=== PATIENT | female | born 1995 | race Caucasian/White ===

== ENCOUNTER 2021-05-04 04:24 | Inpatient (IN) | payer OTHER, SELFPAY ==
[2021-05-04 04:47] VITALS: BMI 49.8
[2021-05-04] MEDS ORDERED: Carboprost 250 MCG/ML AMP IM PRN (05:21)
[2021-05-04] MEDS ORDERED: Lidocaine 1% (PF) 30 ML VIAL SC PRN (05:21)
[2021-05-04] MEDS ORDERED: hydrALAZINE 20 MG/ML VIAL SLOW IVP PRN ×2 (05:21→18:46)
[2021-05-04] MEDS ORDERED: Diphenoxylate HCl/Atropine Tablet PO PRN (05:21)
[2021-05-04] MEDS ORDERED: Methylergonovine 0.2 MG/ML VIAL IM PRN (05:21)
[2021-05-04] MEDS ORDERED: Promethazine HCl 25 MG/ML VIAL IM PRN ×5 (05:21→18:46)
[2021-05-04] MEDS ORDERED: Butorphanol Tartrate 1 MG/ML VIAL SLOW IVP PRN (05:21)
[2021-05-04] MEDS ORDERED: Misoprostol 200 MCG TAB PR PRN (05:21)
[2021-05-04] MEDS ORDERED: Ondansetron PF 4 MG/2 ML Vial IVP PRN ×5 (05:21→18:46)
[2021-05-04] MEDS: Lactated Ringer's 1,000 ML IV SCH ×4 (05:40→20:49)
[2021-05-04] MEDS ORDERED: NS w/ Oxytocin 30 units 500 ML IV SCH ×3 (06:00→18:46)
[2021-05-04 06:10] LABS: Hemoglobin 13.9 g/dL (12.0-15.5); Mean Corpuscular HGB CONC 34.2 g/dL (32.0-36.0); Mean Corpuscular Hemoglobin 29.6 pg (27.0-33.0); Mean Corpuscular Volume 86.4 fl (81.6-98.3); Mean Platelet Volume 10.4 fl (7.4-10.4); Platelet Count 202 10x3/uL (150-450); RBC Distribution Width 14.2 % (11.5-14.5)
[2021-05-04] MEDS ORDERED: Fentanyl 2 mcg/Bup 0.1% Cadd 100 ML ONE (06:10)
[2021-05-04 06:36] LABS: Hep B Surf Ag Non-Reactive S/CO (NonReactive)
[2021-05-04 06:38] LABS: Syphilis Antibody Nonreactive (Nonreactive); Syphilis Antibody Index 0.04 S/CO (<1.00 Non-Reactive)
[2021-05-04] MEDS ORDERED: Naloxone HCl 0.4 mg/ml Vial IVP PRN ×6 (07:09→15:56)
[2021-05-04] MEDS ORDERED: ePHEDrine Sulfate 50 MG/10 ML VIAL SLOW IVP PRN (07:09)
[2021-05-04] MEDS ORDERED: Hydrocerin (Eucerin) Cream 120 gm Jar TOP PRN ×3 (07:09→15:56)
[2021-05-04] MEDS ORDERED: Acetaminophen 325 MG TAB PO PRN (07:09)
[2021-05-04] MEDS ORDERED: Lactated Ringer's 500 ML IV PRN (07:09)
[2021-05-04] MEDS ORDERED: diphenhydrAMINE 50 MG/ML VIAL IVP PRN ×3 (07:09→15:56)
[2021-05-04] MEDS ORDERED: Communication Order-Pharmacy FS SCH ×3 (07:15→16:00)
[2021-05-04] MEDS ORDERED: Fentanyl 2 mcg/Bupivacaine 0.1% Cassette 100 ML EPIDURAL SCH (07:15)
[2021-05-04 07:20] LABS: HBSAg Index 0.16 S/CO (0-0.99)
[2021-05-04] MEDS ORDERED: Bupivacaine/Epinephrine 0.25% 30 ML VIAL ONE (08:00)
[2021-05-04] MEDS ORDERED: Lidocaine 2% MPF 10 ML AMP (For Epidural Use) ONE ×2 (08:00→14:37)
[2021-05-04] MEDS ORDERED: Azithromycin 500 MG in Sodium Chloride 0.9% 250 ML 250 ML IVPB SCH (08:00)
[2021-05-04] MEDS ORDERED: ePHEDrine Sulfate 50 MG/10 ML VIAL ONE (08:00)
[2021-05-04 11:02] LABS: SARS-CoV-2 NAA Rapid Test Not Detected (NotDetected)
[2021-05-04] MEDS ORDERED: Famotidine/PF 20 mg/2ml Vial SLOW IVP PRN (12:21)
[2021-05-04] MEDS ORDERED: Bicitra 30 ML UDCUP PO PRN (12:21)
[2021-05-04] MEDS ORDERED: CEFAZOLIN IVPB SCH (12:30)
[2021-05-04] MEDS ORDERED: DEXTROSE IVPB SCH (12:30)
[2021-05-04] MEDS ORDERED: Dexamethasone 4 mg/ml Vial ONE (13:06)
[2021-05-04] MEDS ORDERED: Metoclopramide HCl 10 MG/2 ML VIAL ONE (13:06)
[2021-05-04] MEDS ORDERED: Oxytocin 10 UNITS/ML VIAL ONE (13:06)
[2021-05-04] MEDS ORDERED: Ondansetron PF 4 MG/2 ML Vial ONE (13:06)
[2021-05-04] MEDS ORDERED: Phenylephrine 10 MG/ML VIAL ONE (13:07)
[2021-05-04] MEDS ORDERED: Ketorolac Tromethamine 30 MG/ML VIAL ONE (13:07)
[2021-05-04] MEDS ORDERED: CEFAZOLIN 3 GM, Admixture Fee 1 EACH in Sodium Chloride 0.9% 100 ML IVPB SCH (13:30)
[2021-05-04] MEDS ORDERED: ceFAZolin Sodium/D5W 2 GM in Premix Bag 1 BAG IVPB SCH (14:00)
[2021-05-04] MEDS ORDERED: Lidocaine 2% PF 100 mg/5 ml Syringe ONE (14:41)
[2021-05-04] MEDS ORDERED: Morphine PF 10 MG/10 ML VIAL ONE (15:07)
[2021-05-04] MEDS ORDERED: Ondansetron HCl/PF 4 MG/2 ML Vial IVP PRN ×2 (15:12→15:56)
[2021-05-04] MEDS ORDERED: Ketorolac Tromethamine 30 MG/ML VIAL IVP PRN ×2 (15:12→15:56)
[2021-05-04] MEDS ORDERED: Fentanyl 100 MCG/2 ML VIAL SLOW IVP PRN ×2 (15:12→15:56)
[2021-05-04] MEDS ORDERED: Promethazine HCl 25 MG SUPP PR PRN ×2 (15:12→15:56)
[2021-05-04] MEDS ORDERED: Meperidine HCl/PF 25 MG/ML VIAL SLOW IVP PRN ×2 (15:12→15:56)
[2021-05-04] MEDS ORDERED: Naloxone HCl 0.4 mg/ml Vial IV PRN ×2 (15:12→15:56)
[2021-05-04] MEDS ORDERED: Ketorolac Tromethamine 30 MG/ML VIAL IVP SCH ×2 (15:15→16:00)
[2021-05-04 16:36] LABS: RapidComm Collect By CBN
[2021-05-04 16:37] LABS: RapidComm Collect By CBN
[2021-05-04] MEDS ORDERED: Boostrix 0.5 ML (Tdap) VIAL IM ONE (18:46)
[2021-05-04] MEDS ORDERED: HYDROcodone/Acetaminophen 5/325 mg Tablet PO PRN ×2 (18:46)
[2021-05-04] MEDS ORDERED: Lanolin Ointment 7 GM TUBE TOP PRN (18:46)
[2021-05-04] MEDS ORDERED: Meperidine HCl/PF 25 MG/ML VIAL IM PRN (18:46)
[2021-05-04] MEDS ORDERED: Bisacodyl 10 MG SUPP PR PRN (18:46)
[2021-05-04] MEDS ORDERED: diphenhydrAMINE 25 MG CAP PO PRN (18:46)
[2021-05-04] MEDS ORDERED: Zolpidem Tartrate 5 MG TAB PO PRN (18:46)
[2021-05-05] MEDS: Docusate 100 MG CAP PO SCH ×3 (03:27→21:14)
[2021-05-05] MEDS: Lactated Ringer's 1,000 ML IV SCH ×3 (03:28→19:59)
[2021-05-05 04:18] LABS: Hemoglobin 12.3 g/dL (12.0-15.5); Mean Corpuscular HGB CONC 34.1 g/dL (32.0-36.0); Mean Corpuscular Hemoglobin 30.4 pg (27.0-33.0); Mean Corpuscular Volume 89.1 fl (81.6-98.3); Mean Platelet Volume 10.5 fl (7.4-10.4); Platelet Count 180 10x3/uL (150-450); RBC Distribution Width 14.6 % (11.5-14.5); Red Blood Cell (RBC) Count 4.05 10x6/uL (3.90-5.03); White Blood Cell (WBC) Count 16.7 10x3/uL (3.5-10.5)
[2021-05-05] MEDS: Prenatal Vitamin 1 TAB PO SCH (08:30)
[2021-05-05] MEDS: Simethicone Chewable 80 MG TAB PO PRN (08:30)
[2021-05-05] MEDS: Ibuprofen 800 MG TAB PO SCH ×2 (13:23→21:14)
[2021-05-06] MEDS: Ibuprofen 800 MG TAB PO SCH (05:49)
[2021-05-06] MEDS: Lactated Ringer's 1,000 ML IV SCH ×2 (07:21→09:22)
[2021-05-06] MEDS: Simethicone Chewable 80 MG TAB PO PRN (08:35)
[2021-05-06] MEDS: Docusate 100 MG CAP PO SCH (08:35)
[2021-05-06] MEDS: Prenatal Vitamin 1 TAB PO SCH (08:35)
[2021-05-06 11:53] VITALS: BP 133/93; TEMP 98.2
== END 2021-05-06 12:45 | disposition home or self-care (01) | DRG 786 ==
LOC: CSHLD/OP 04:24 → CSHLD 06:05 → CSHPP 18:30
PROVIDERS: ADMIT Obstetrics & Gynecology; ATTEND Obstetrics & Gynecology
PROC: 10D00Z1 Extraction of Products of Conception, Low, Open Approach (ICD-10-PCS; principal; 2021-05-04)
PROC: 10H07YZ Insertion of Other Device into Products of Conception, Via Natural or Artificial Opening (ICD-10-PCS; 2021-05-04)
DX: O42.02 Full-term premature rupture of membranes, onset of labor within 24 hours of rupture (principal); O41.1230 Chorioamnionitis, third trimester, not applicable or unspecified; Z20.822 Contact with and (suspected) exposure to COVID-19; Z37.0 Single live birth; Z3A.39 39 weeks gestation of pregnancy; Z86.16 Personal history of COVID-19; Z87.440 Personal history of urinary (tract) infections; O62.1 Secondary uterine inertia; O76 Abnormality in fetal heart rate and rhythm complicating labor and delivery; O32.8XX0 Maternal care for other malpresentation of fetus, not applicable or unspecified; O36.63X0 Maternal care for excessive fetal growth, third trimester, not applicable or unspecified
CPT/HCPCS: 36415; 51702; 82805; 85027; 86780; 86850; 86900; 86901; 87340; 88307; 99285; J0456; J0690; J1100; J1885; J2001; J2274; J2370; J2405; J2590; J2765; J3490; J7050; J7120; U0002

== ENCOUNTER 2022-08-19 08:37 | Inpatient (IN) | payer OTHER, SELFPAY ==
[2022-08-19 09:11] VITALS: BMI 50.1
[2022-08-19] MEDS ORDERED: Promethazine HCl 25 MG/ML VIAL IM PRN ×2 (10:15→13:09)
[2022-08-19] MEDS ORDERED: NS w/ Oxytocin 30 units 500 ML IV SCH ×2 (10:15)
[2022-08-19] MEDS ORDERED: Ibuprofen 800 MG TAB PO PRN (10:15)
[2022-08-19] MEDS ORDERED: Carboprost 250 MCG/ML AMP IM PRN (10:15)
[2022-08-19] MEDS ORDERED: Lidocaine 1% (PF) 30 ML VIAL SC PRN (10:15)
[2022-08-19] MEDS ORDERED: HYDROcodone/Acetaminophen 5/325 mg Tablet PO PRN ×2 (10:15)
[2022-08-19] MEDS ORDERED: Methylergonovine 0.2 MG/ML VIAL IM PRN (10:15)
[2022-08-19] MEDS ORDERED: Diphenoxylate HCl/Atropine Tablet PO PRN ×2 (10:15)
[2022-08-19] MEDS ORDERED: Butorphanol Tartrate 1 MG/ML VIAL SLOW IVP PRN (10:15)
[2022-08-19] MEDS ORDERED: Ondansetron PF 4 MG/2 ML Vial IVP PRN ×2 (10:15→13:09)
[2022-08-19] MEDS ORDERED: Misoprostol 200 MCG TAB PR PRN (10:15)
[2022-08-19] MEDS ORDERED: hydrALAZINE 20 MG/ML VIAL SLOW IVP PRN ×2 (10:15→12:52)
[2022-08-19 10:28] LABS: Hemoglobin 12.6 g/dL (12.0-15.5); Mean Corpuscular HGB CONC 33.6 g/dL (32.0-36.0); Mean Corpuscular Hemoglobin 28.5 pg (27.0-33.0); Mean Corpuscular Volume 84.8 fl (81.6-98.3); Mean Platelet Volume 10.8 fl (7.4-10.4); Platelet Count 228 10x3/uL (150-450); RBC Distribution Width 14.4 % (11.5-14.5); Red Blood Cell (RBC) Count 4.42 10x6/uL (3.90-5.03); White Blood Cell (WBC) Count 12.5 10x3/uL (3.5-10.5)
[2022-08-19 10:51] LABS: Syphilis Antibody Nonreactive (Nonreactive); Syphilis Antibody Index 0.03 S/CO (<1.00 Non-Reactive)
[2022-08-19 10:52] LABS: HBSAg Index 0.13 S/CO (0-0.99); Hep B Surf Ag - L&D Non-Reactive S/CO (NonReactive)
[2022-08-19 11:47] LABS: Bilirubin Neg (Negative); Blood, Urine 250 (Negative); Clarity Clear (Clear); Glucose, Urine (Dipstick) Normal (Negative); Ketone, Urine Negative (Negative); Leukocyte 100 (Negative); Nitrite Negative (Negative); Protein, Urine (Dipstick) 30 mg/dl (Neg-Trace); Urobilinogen Normal mg/dL (Less than 2)
[2022-08-19 12:16] LABS: Bacteria/HPF 2+ HPF (None Seen); CAUTI Indications for Culture Pregnancy; WBC/HPF 0-3 HPF (0-3)
[2022-08-19 12:17] LABS: Urine Culture Reflex Yes Yes
[2022-08-19] MEDS ORDERED: fentaNYL/Ropivacaine Epidural 100 ML ONE (12:25)
[2022-08-19] MEDS ORDERED: Labetalol HCl 100 MG/20 ML VIAL SLOW IVP PRN ×3 (12:52)
[2022-08-19] MEDS ORDERED: Lorazepam 2 MG/ML VIAL SLOW IVP PRN (12:52)
[2022-08-19] MEDS ORDERED: Calcium Gluc 4.6 MEQ/10 ML (100 MG/ML) SLOW IVP PRN (12:52)
[2022-08-19] MEDS ORDERED: Magnesium Sulfate 20 gm/500 ml 20 GM/500 ML BAG IVPB SCH ×2 (13:00)
[2022-08-19] MEDS: fentaNYL 2 mcg/Ropivacaine 0.2% Epidural 100 ML CADD EPIDURAL SCH ×2 (13:06→22:00)
[2022-08-19] MEDS ORDERED: Lactated Ringer's 500 ML IV PRN (13:09)
[2022-08-19] MEDS ORDERED: Naloxone HCl 0.4 mg/ml Vial IVP PRN ×2 (13:09)
[2022-08-19] MEDS ORDERED: Acetaminophen 325 MG TAB PO PRN (13:09)
[2022-08-19] MEDS ORDERED: ePHEDrine Sulfate 50 MG/10 ML VIAL SLOW IVP PRN (13:09)
[2022-08-19] MEDS ORDERED: Moisturizing Cream (Eucerin) 113 GM JAR TOP PRN (13:09)
[2022-08-19] MEDS ORDERED: diphenhydrAMINE 50 MG/ML VIAL IVP PRN (13:09)
[2022-08-19 13:15] LABS: ALT (SGPT) 8 U/L (8-55); AST (SGOT) 13 U/L (5-34); Albumin 3.2 g/dL (3.5-5.0); Alkaline Phosphatase 147 U/L (40-110); Anion Gap 12 mmol/L (10-20); BUN (Urea Nitrogen) 10 mg/dL (7.0-18.7); Bilirubin, Total 0.5 mg/dL (0.2-1.2); Calc. Creatinine Clearance 254 mL/min (70-130); Calcium 9.5 mg/dL (7.8-10.44); Carbon Dioxide 23 mmol/L (22-29); Chloride 105 mmol/L (98-107); Estimated GFR 109; Globulin 2.8 g/dL (2.4-3.5); Glucose 77 mg/dL (70-105); Potassium 4.4 mmol/L (3.5-5.1); Sodium 136 mmol/L (136-145)
[2022-08-19] MEDS ORDERED: Magnesium Sulfate 20 gm/500 ml 4 GM/100 ML BAG IVPB ONE (13:15)
[2022-08-19] MEDS ORDERED: Communication Order-Pharmacy FS SCH (13:15)
[2022-08-19] MEDS: Magnesium Sulfate 20 gm/500 ml 20 GM/500 ML BAG IVPB PRN (13:20)
[2022-08-19 13:36] LABS: Creatinine, Urine 66.75 mg/dL (47-110)
[2022-08-19 16:27] LABS: Magnesium 3.4 mg/dL (1.6-2.6)
[2022-08-19] MEDS ORDERED: fentaNYL 50 mcg/mL 1 mL Vial ONE (22:54)
[2022-08-20] MEDS ORDERED: Bicitra 30 ML UDCUP PO PRN (01:53)
[2022-08-20] MEDS ORDERED: Famotidine/PF 20 mg/2ml Vial SLOW IVP PRN (01:53)
[2022-08-20] MEDS ORDERED: fentaNYL 50 mcg/mL 1 mL Vial ONE (01:58)
[2022-08-20] MEDS ORDERED: EPINEPHrine 1 MG/10 ML Abboject SYRINGE ONE (01:58)
[2022-08-20] MEDS ORDERED: Ketorolac Tromethamine 30 MG/ML VIAL ONE (01:58)
[2022-08-20] MEDS ORDERED: Phenylephrine 40 MG/NS 250 ML 250 ML ONE (01:58)
[2022-08-20] MEDS ORDERED: Morphine PF 10 MG/10 ML VIAL ONE (01:58)
[2022-08-20] MEDS ORDERED: Lidocaine 2% MPF 10 ML AMP (For Epidural Use) ONE (01:59)
[2022-08-20] MEDS ORDERED: CEFAZOLIN 2 GM VIAL ONE (02:00)
[2022-08-20] MEDS ORDERED: CEFAZOLIN 2 GM in Sodium Chloride 0.9% 100 ML IVPB SCH (02:00)
[2022-08-20] MEDS ORDERED: Azithromycin 500 MG in Sodium Chloride 0.9% 250 ML 250 ML IVPB SCH (02:00)
[2022-08-20] MEDS ORDERED: Carboprost 250 MCG/ML AMP ONE ×2 (02:01→03:06)
[2022-08-20] MEDS ORDERED: Tranexamic Acid 1,000 MG/10 ML VIAL ONE (02:01)
[2022-08-20] MEDS ORDERED: Misoprostol 200 MCG TAB ONE (02:01)
[2022-08-20] MEDS ORDERED: Azithromycin 500 MG VIAL ONE (02:01)
[2022-08-20] MEDS ORDERED: Methylergonovine 0.2 MG/ML VIAL ONE (02:02)
[2022-08-20] MEDS ORDERED: Famotidine/PF 20 mg/2ml Vial ONE (02:03)
[2022-08-20] MEDS ORDERED: Ondansetron PF 4 MG/2 ML Vial ONE (02:26)
[2022-08-20] MEDS ORDERED: Oxytocin 10 UNITS/ML VIAL ONE ×3 (02:26→03:28)
[2022-08-20] MEDS ORDERED: Dexamethasone 4 mg/ml Vial ONE (02:26)
[2022-08-20] MEDS ORDERED: ePHEDrine Sulfate 50 MG/10 ML VIAL ONE (02:40)
[2022-08-20 03:08] LABS: RapidComm Collect By CBN
[2022-08-20 03:11] LABS: RapidComm Collect By CBN; pH (Cord, venous) 7.082 (7.250-7.350)
[2022-08-20] MEDS ORDERED: Diphenoxylate HCl/Atropine Tablet PO SCH (03:15)
[2022-08-20] MEDS ORDERED: Misoprostol 200 MCG TAB PR PRN (03:45)
[2022-08-20] MEDS ORDERED: Simethicone Chewable 80 MG TAB PO PRN (03:45)
[2022-08-20] MEDS ORDERED: hydrALAZINE 20 MG/ML VIAL SLOW IVP PRN (03:45)
[2022-08-20] MEDS ORDERED: diphenhydrAMINE 25 MG CAP PO PRN (03:45)
[2022-08-20] MEDS ORDERED: Boostrix 0.5 ML (Tdap) VIAL (>/=7 yrs of age) IM ONE (03:45)
[2022-08-20] MEDS ORDERED: Ketorolac Tromethamine 30 MG/ML VIAL IVP PRN (04:01)
[2022-08-20] MEDS ORDERED: Ondansetron HCl/PF 4 MG/2 ML Vial IVP PRN (04:01)
[2022-08-20] MEDS ORDERED: Promethazine HCl 25 MG SUPP PR PRN (04:01)
[2022-08-20] MEDS ORDERED: diphenhydrAMINE 50 MG/ML VIAL IVP PRN (04:01)
[2022-08-20] MEDS ORDERED: Meperidine HCl/PF 25 MG/ML VIAL SLOW IVP PRN (04:01)
[2022-08-20] MEDS ORDERED: Promethazine HCl 25 MG/ML VIAL IM PRN (04:01)
[2022-08-20] MEDS ORDERED: Ondansetron PF 4 MG/2 ML Vial IVP PRN (04:01)
[2022-08-20] MEDS ORDERED: Fentanyl 100 MCG/2 ML VIAL SLOW IVP PRN (04:01)
[2022-08-20] MEDS ORDERED: Naloxone HCl 0.4 mg/ml Vial IVP PRN ×2 (04:01)
[2022-08-20] MEDS ORDERED: Naloxone HCl 0.4 mg/ml Vial IV PRN (04:01)
[2022-08-20] MEDS ORDERED: Moisturizing Cream (Eucerin) 113 GM JAR TOP PRN (04:01)
[2022-08-20] MEDS ORDERED: Communication Order-Pharmacy FS SCH (04:15)
[2022-08-20] MEDS ORDERED: NS w/ Oxytocin 30 units 500 ML IV SCH (04:15)
[2022-08-20] MEDS ORDERED: Ketorolac Tromethamine 30 MG/ML VIAL IVP SCH (04:15)
[2022-08-20 07:37] LABS: Hemoglobin 11.5 g/dL (12.0-15.5); Mean Corpuscular HGB CONC 33.2 g/dL (32.0-36.0); Mean Corpuscular Hemoglobin 28.6 pg (27.0-33.0); Mean Corpuscular Volume 86.1 fl (81.6-98.3); RBC Distribution Width 14.2 % (11.5-14.5); Red Blood Cell (RBC) Count 4.02 10x6/uL (3.90-5.03); White Blood Cell (WBC) Count 20.8 10x3/uL (3.5-10.5)
[2022-08-20 07:38] LABS: Mean Platelet Volume 10.5 fl (7.4-10.4); Platelet Count 201 10x3/uL (150-450)
[2022-08-20] MEDS ORDERED: Prenatal Vitamin 1 TAB PO SCH (09:00)
[2022-08-20] MEDS: Ferrous Sulfate 325 MG TAB PO SCH (10:31)
[2022-08-20] MEDS: Prenatal Vitamin 1 TAB PO SCH (10:31)
[2022-08-20] MEDS ORDERED: Magnesium Sulfate 20 gm/500 ml 20 GM/500 ML BAG ONE (10:55)
[2022-08-20] MEDS: Magnesium Sulfate 20 gm/500 ml 20 GM/500 ML BAG IVPB PRN (10:55)
[2022-08-20] MEDS ORDERED: Bupivacaine 0.25% HCL 30 ML VIAL ONE (13:00)
[2022-08-21 05:43] LABS: Hemoglobin 10.4 g/dL (12.0-15.5); Mean Corpuscular HGB CONC 32.3 g/dL (32.0-36.0); Mean Corpuscular Hemoglobin 27.7 pg (27.0-33.0); Mean Corpuscular Volume 85.9 fl (81.6-98.3); Mean Platelet Volume 10.4 fl (7.4-10.4); Platelet Count 208 10x3/uL (150-450); RBC Distribution Width 14.9 % (11.5-14.5); Red Blood Cell (RBC) Count 3.75 10x6/uL (3.90-5.03); White Blood Cell (WBC) Count 13.3 10x3/uL (3.5-10.5)
[2022-08-21] MEDS: Lactated Ringer's 1,000 ML IV SCH ×3 (07:07→07:11)
[2022-08-21] MEDS: Ferrous Sulfate 325 MG TAB PO SCH (07:07)
[2022-08-21] MEDS: Docusate 100 MG CAP PO PRN (07:50)
[2022-08-21] MEDS: Prenatal Vitamin 1 TAB PO SCH (07:51)
[2022-08-21] MEDS: HYDROcodone/Acetaminophen 5/325 mg Tablet PO PRN ×3 (09:42→23:32)
[2022-08-21] MEDS: Ibuprofen 800 MG TAB PO SCH ×2 (14:08→21:15)
[2022-08-22 04:08] LABS: Hemoglobin 10.1 g/dL (12.0-15.5); Mean Corpuscular HGB CONC 32.3 g/dL (32.0-36.0); Mean Corpuscular Hemoglobin 28.8 pg (27.0-33.0); Mean Corpuscular Volume 89.2 fl (81.6-98.3); Mean Platelet Volume 10.3 fl (7.4-10.4); Platelet Count 206 10x3/uL (150-450); RBC Distribution Width 14.8 % (11.5-14.5); Red Blood Cell (RBC) Count 3.51 10x6/uL (3.90-5.03); White Blood Cell (WBC) Count 12.2 10x3/uL (3.5-10.5)
[2022-08-22] MEDS: Ibuprofen 800 MG TAB PO SCH ×2 (06:30→14:11)
[2022-08-22] MEDS: Ferrous Sulfate 325 MG TAB PO SCH ×2 (06:33→07:04)
[2022-08-22] MEDS: Docusate 100 MG CAP PO PRN (08:14)
[2022-08-22] MEDS: Prenatal Vitamin 1 TAB PO SCH (08:14)
[2022-08-22] MEDS: HYDROcodone/Acetaminophen 5/325 mg Tablet PO PRN ×2 (08:23→16:35)
[2022-08-22 11:41] VITALS: BP 124/71; TEMP 98.4
== END 2022-08-22 17:10 | disposition home or self-care (01) | DRG 787 ==
LOC: CSHLD/OP 08:37 → CSHLD 11:51 → CSHPP 08-21 04:05
PROVIDERS: ADMIT Obstetrics & Gynecology; ATTEND Obstetrics & Gynecology
PROC: 10D00Z1 Extraction of Products of Conception, Low, Open Approach (ICD-10-PCS; principal; 2022-08-20)
DX: O42.02 Full-term premature rupture of membranes, onset of labor within 24 hours of rupture (principal); O72.1 Other immediate postpartum hemorrhage; O99.354 Diseases of the nervous system complicating childbirth; O34.211 Maternal care for low transverse scar from previous cesarean delivery; Z3A.40 40 weeks gestation of pregnancy; O48.0 Post-term pregnancy; Z37.0 Single live birth; O14.94 Unspecified pre-eclampsia, complicating childbirth; E66.01 Morbid (severe) obesity due to excess calories; O99.214 Obesity complicating childbirth; O34.13 Maternal care for benign tumor of corpus uteri, third trimester; D25.9 Leiomyoma of uterus, unspecified; G47.33 Obstructive sleep apnea (adult) (pediatric)
CPT/HCPCS: 36415; 51702; 80053; 81001; 82570; 82805; 83735; 84156; 85027; 86780; 86850; 86900; 86901; 87086; 87340; 99285; J0171; J0456; J1100; J1885; J2274; J2405; J2590; J3010; J3475; J3490; S0020; S0028